=== PATIENT | female | born 2000 | race Caucasian/White ===

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

== ENCOUNTER 2024-03-22 23:22 | Emergency (ER) | payer OTHER, SELFPAY ==
[2024-03-22] MEDS ORDERED: fentaNYL 50 mcg/mL 1 mL Vial ONE (23:51)
[2024-03-22] MEDS ORDERED: Metoclopramide HCl 10 MG (2 mL) VIAL ONE (23:51)
[2024-03-22] MEDS ORDERED: Ketorolac Tromethamine 30 MG (1 mL) VIAL ONE (23:51)
[2024-03-22] MEDS ORDERED: Dexamethasone 10 MG/ML VIAL ONE (23:51)
== END 2024-03-23 01:00 | disposition home or self-care (01) ==
LOC: ERS 23:22
DX: G43.909 Migraine, unspecified, not intractable, without status migrainosus (principal); F17.290 Nicotine dependence, other tobacco product, uncomplicated
CPT/HCPCS: 96365; 96375; J1100; J1885; J2765; J3010